=== PATIENT | female | born 2000 | race Caucasian/White ===

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

== ENCOUNTER 2023-06-16 19:58 | Emergency (ER) | payer OTHER, BC | END 2023-06-16 22:50 | disposition home or self-care (01) | LOC: JD.ED 19:58 | DX: Z04.1 Encounter for examination and observation following transport accident (principal); J45.909 Unspecified asthma, uncomplicated; Z91.048 Other nonmedicinal substance allergy status | CPT/HCPCS: 99282; 99284 ==